=== PATIENT | male | born 1970 | race Caucasian/White ===

== ENCOUNTER 2024-12-17 11:08 | Emergency (ER) | payer OTHER, SELFPAY ==
--- OUTSIDE RECORDS SUMMARY | 2024-12-17 11:15 | XMS_ITS | Clinical Summary ---
Author Organization [facility] Address [address] [address] Phone Care Team Providers Care Duct Cleaner Name Role Phone Omega Jones MD Primary Care Provider +1 [phone] Allergies No known active allergies Medications lisinopril (PRINIVIL, ZESTRIL) 10 MG TabletIndications :Hypertension, essential TAKE 1 TABLET BY MOUTH DAILY 90 Tablet 3 5 Active sildenafil citrate (VIAGRA) 100 MG TabletIndications :Vasculogenic erectile dysfunction, unspecified vasculogenic erectile dysfunction type Take 1 Tablet by mouth daily as needed for Erectile Dysfunction. 10 Tablet 5 Active Active Problems Problem Noted Date Diagnosed Date Irritant contact dermatitis 05/31/2020 Mixed hyperlipidemia 08/31/2019 Hypertension, essential Encounters Date Type Department Care Team Description 12/16/2024 10:[address] [facility] Primary [facility] [place] [address] Lab [facility] Essential hypertension, malignant (Primary Dx); Hyperlipidemia, unspecified hyperlipidemia type; Routine general medical examination at health care facility Discharge Disposition: Discharged to home or Selfcare 12/16/2024 Travel 10/31/2024 3:15 PM INTERMODAL DISPATCHER Office Visit [facility] [place] [address] Omega Jones MD Encounter for health maintenance examination (Adult) (Primary Dx); Hypertension, essential; Mixed hyperlipidemia; Vasculogenic erectile dysfunction, unspecified vasculogenic erectile dysfunction type Discharge Disposition: Discharged to home or Selfcare 10/29/2024 Travel 10/28/2024 Refill [facility] [place] [address] [place] [address] Omega Jones MD Medication Refill from Last 3 Months Immunizations Immunization Administration Dates Next Due Influenza Vaccine greater than 3 yrs 05/31/2022, 08/31/2013 Influenza Vaccine, Quadrivalent, PF 10/02,07/04/2021,05/31/2020,2018 Influenza, Seasonal, Injecta ble, Undefined 05/31/2022 Influenza,Split Virus,Trivalent,Injectable,PF 08/29/2024 TD VACCINE 10/29/2023 TDAP Vaccine 02/15/2013 Family History Medical History Relation Name Comments Hypertension Brother 1 Geoff No Known Problems Brother 2 No Known Problems Daughter Cancer Father Geoff Lung Hypertension Father Geoff Cancer Maternal Grandfather Ismael hunter lar Hypertension Mother Leann Liu Diabetes Paternal Uncle Xiang Liu No Known Problems Sister No Known Problems Son 1 No Known Problems Son 2 No Known Problems Son 3 No Known Problems Son 4 Relation Name Status Comments Brother 1 Geoff Alive Brother 2 Alive Daughter Alive Father Geoff Maternal Grandfather Ismael Mother Leann Liu Alive Paternal Uncle Xiang Liu Sister Alive Son 1 Alive Son 2 Alive Son 3 Alive Son 4 Alive Social History Tobacco Use Types Packs/Day Years Used Date Smoking Tobacco: Never Smokeless Tobacco: Never Tobacco Cessation:Counseling Given: Not Answered Alcohol Use Standard Drinks/Week Comments Yes 4 (1 standard drink = 0.6 oz pur e alcohol) 4 beers a week [facility] Utilities Answer Date Recorded In the past 12 months has e [employer], gas, oil, or water [employer] threatened to shut off services in your home? No 10/29/2024 Social Connection and Isolat ion Panel [NHANES] Answer Date Recorded In a typical week, how many times do you talk on the phone with family, friends, or neighbors? More than three times a week 10/29/2024 How often do you get togethe r with friends or relatives? Twice a week 10/29/2024 How often do you attend chur ch or protestant services? Never 10/29/2024 Do you belong to any clubs o r organizations such as religion groups, unions, fraternal or athletic groups, or school groups? Yes 10/29/2024 How often do you attend meet ings of the clubs or organizations you belong to? More than 4 times per year 10/29/2024 Are you , , di vorced, , never , or living with a partner? 10/29/2024 AUDIT-C Answer Date Recorded Q1: How often do you have a drink containing alc ohol? 2-4 times a month 10/29/2024 Q2: How many drinks containi ng alcohol do you have on a typical day when you are drinking? 3 or 4 10/29/2024 Q3: How often do you have si x or more drinks on one occasion? Less than monthly 10/29/2024 Overall Financial Resource Strain (CARDIA) Answe r Date Recorded How hard is it for you to pa y for the very basics like food, housing, medical care, and heating? Not hard at all 10/29/2024 PHQ-2 Answer Date Recorded Total Score - Questions 1-9 0 10/2024 [facility] - Occupational Stress Questionnaire Answer Date Recorded Do you feel stress - tense, restless, nervous, or anxious, or unable to sleep at night because your mind is troubled all the time - these days? Not at all 10/29/2024 Exercise Vital Sign Answer Date Recorde d On average, how many days pe r week do you engage in moderate to strenuous exercise (like a brisk walk)? 5 days 10/29/2024 On average, how many minutes do you engage in exercise at this level? 60 min 10/29/2024 Hunger Vital Sign Answer Date Recorded Within the past 12 months, y ou worried that your food would run out before you got the money to buy more. Never true 10/30/19 25 Within the past 12 months, t he food you bought just didn't last and you didn't have money to get more. Never true 10/29/2024 PRAPARE - Transportation Answer Date Re corded In the past 12 months, has l ack of transportation kept you from medical appointments or from getting medications? No 08/2024 In the past 12 months, has l ack of transportation kept you from meetings, work, or from getting things needed for daily living? No 10/29/2024 Housing Stability Vital Sign Answer Akbar e Recorded In the last 12 months, was t here a time when you were not able to pay the mortgage or rent on time? No 10/28/2023 In the last 12 months, how many places have you lived? 1 10/28/2023 In the last 12 months, was t here a time when you did not have a steady place to sleep or slept in a halfway (including now)? No 10/28/2023 Housing Stability Vital Sign Answer Akbar e Recorded In the last 12 months, was t here a time when you were not able to pay the mortgage or rent on time? No 10/29/2024 Number of Times Moved in the Last Year Not on fi le 10/29/2024 At any time in the past 12 m [facility], were you homeless or living in a halfway (including now)? No 10/29/2024 Education Answer Date Recorded What is the highest level of school you have completed or the highest degree you have received? Some college, no degree 07/09/2020 Sexually Active Control Partners Comments Yes None Female Vasectomy Sex and Gender Information Value Date Recorded Sex Assigned at Male 09/30/2023 7:51 AM INTERMODAL DISPATCHER Legal Sex Male 7:09 PM CDT Gender Identity Male 09/30/2023 7:51 AM INTERMODAL DISPATCHER Sexual Orientation Straight 09/30/2023 7: 51 AM INTERMODAL DISPATCHER Last Filed Vital Signs Vital Sign Reading Time Taken Comments Blood Pressure 118/60 10/31/2024 3:20 PM INTERMODAL DISPATCHER Pulse 71 10/31/2024 3:20 PM INTERMODAL DISPATCHER Temperature 36.4 C (97.5 F) 10/31/2024 3:20 PM INTERMODAL DISPATCHER Respiratory Rate 22 10/31/2024 3:20 PM INTERMODAL DISPATCHER Oxygen Saturation 99% 10/31/2024 3:20 PM INTERMODAL DISPATCHER Inhaled Oxygen Concentration - - Weight 89.4 kg (197 lb 1.6 oz) 10/31/2024 3:20 P M INTERMODAL DISPATCHER Height 175.3 cm (5' 9 ) 10/31/2024 3:20 PM INTERMODAL DISPATCHER Body Mass Index 29.11 10/31/2024 3:20 PM INTERMODAL DISPATCHER Plan of Treatment Upcoming Encounters Date Type Department Care Team (Late st Contact Info) Description 2025 3:15 PM INTERMODAL DISPATCHER Office Visit [facility] - [facility] - [place] [address] [place] [phone] Omega Jones MD [address] [place] [address] Health Maintenance Due Date Last Done Comments Hepatitis B Immunization (1 of 3 - 19+ 3-dose series) 1988 Cologuard 11/03/2019 Immunochemical Fecal Occult Blood 11/03/2019 Pneumococcal Immunization (50+ years) (1 of 1 - PCV) 11/03/2019 Zoster Immunization (1 of 2) 11/03/2019 SARS-COV-2 Immunization (2 - season) 2024 12/07/2020 Colonoscopy 10/05/2025 10/05/2020 Colorectal Cancer Screening 10/05/2025 Td Immunization Every 10 Years (Adults With 1 Tdap) 10/28/2033 10/29/2023, 02/15/2013 Respiratory Syncytial Virus (RSV) Immunization (Adult) (1 - 1-dose 75+ series) 2044 10/05/2020 DTaP/Tdap/Td Immunization Discontinued 10/29/2023, Hepatitis C Virus (HCV) Screening Completed 11/07/2023 PSA Discussion Completed 06/27/2024 Influenza Immunization Completed , 10/29/2023, 05/31/2022, Additional history exists Meningococcal Immunization (ACWY) Aged Out No longer eligible based on patient's age to complete this topic Rotavirus Immunization Aged Out No lo nger eligible based on patient's age to complete this topic Procedures Procedure Name Priority Date/Time Associated Diagnosis Comments PSA FREE & TOTAL 06/27/2024 12:0 0 AM CDT HEPATITIS C ANTIBODY Routine 11/07/2023 9:46 AM INTERMODAL DISPATCHER Encounter for hepatitis C screening test for low risk patient from Last 3 Months or Most Recently Relevant to Health Maintenance Results * PSA FREE & TOTAL (06/27/2024 12:00 AM CDT) Prostatic Specific Antigen, Free 1.24 SCAN 06/27/2024 us Provider Scan CHEMISTRY ORDERABLES Final Resul t SCAN * HEPATITIS C ANTIBODY (11/07/2023 9:46 AM INTERMODAL DISPATCHER) hepatitis C antibody 0.09 <1 S/[facility] [id number] A 11/07/2023 10:52 PM INTERMODAL DISPATCHER [facility] Comment: Signal/Cutoff ratio < 0.79 is Nondetected Signal/Cutoff ratio 0.80-0.99 is Grayzone Signal/Cutoff ratio > 0.99 is Detected Supplemental assays are recommended if signal/cutoff ratio is >/=1.00. Signal/cutoff ratio result >/= 5.00 is 97% predictive of positivity for recombinant immunoblot assay (RIBA) and will be reported to the [place] Department of Public [facility] as required. Blood Venipuncture / Unknown 11/07/2023 9:46 AM INTERMODAL DISPATCHER 11/07/2023 10:16 AM INTERMODAL DISPATCHER Omega Jones MD CHEMISTRY ORDERABLES Nimco l Result Performing Organization Address City/[facility]/ZIP Co de Phone Number [facility] [place] [address] [place] [address], [place] from Last 3 Months or Most Recently Relevant to Health Maintenance Insurance [employer] [facility] Care Teams Duct Cleaner Relationship Specialty Start Date End Date Omega Jones MD [address] [place] [address] PCP - General Internal Medicine 05/12/15
--- OUTSIDE RECORDS SUMMARY | 2024-12-17 11:15 | XMS_ITS | Encounter Summary ---
Author Organization [facility] Address [address] [place] [address] Phone Care Team Providers Care Forest Fire Prevention Specialist Name Role Phone Omega Jones MD Primary Care Provider [phone] [phone] Reason for Visit * Reason Comments Medication Refill Encounter Details Date Type Department Care Team (Late st Contact Info) Description 07/01/2023 [facility]ill [facility] [address] [place] [address] Omega Jones MD [address] [place] [address] Medication Refill Social History Tobacco Use Types Packs/Day Years Used Date Smoking Tobacco: Never Smokeless Tobacco: Never Alcohol Use Standard Drinks/Week Comments Yes 4 (1 standard drink = 0.6 oz pur e alcohol) 4 beers a week PHQ-2 Answer Date Recorded Total Score - Questions 1-9 0 11/2020 Education Answer Date Recorded What is the highest level of school you have completed or the highest degree you have received? Some college, no degree 07/09/2020 Sexually Active Control Partners Comments Yes Female Sex and Gender Information Value Date Recorded Sex Assigned at Male 09/30/2023 7:51 AM CATTLE SPRAYER Legal Sex Male 7:09 PM CDT Gender Identity Male 09/30/2023 7:51 AM CATTLE SPRAYER Sexual Orientation Straight 09/30/2023 7: 51 AM CATTLE SPRAYER documented as of this encounter Miscellaneous Notes * Telephone Encounter - Freya Cody RN - 07/01/2023 8:09 AM CDT lisinopril (PRINIVIL, ZESTRIL) 10 MG Tablet 90 Tablet 2 12/29/2022 Refill too soon documented in this encounter Plan of Treatment Upcoming Encounters Date Type Department Care Team (Late st Contact Info) Description 2025 3:15 PM CATTLE SPRAYER Office Visit [facility] - Primary Care - [place] [address] [place] [address] Omega Jones MD [address] [place] [address] documented as of this encounter Visit Diagnoses Not on filedocumented in this encounter Additional Health Concerns Assessment Noted Time PHQ-9 Depression Total Score: 0 07/04/20 21 3:00 PM CDT documented as of this encounter Care Teams Forest Fire Prevention Specialist Relationship Specialty Start Date End Date Omega Jones MD [address] [place] [address] PCP - General Internal Medicine 05/12/15 documented as of this encounter
--- OUTSIDE RECORDS SUMMARY | 2024-12-17 11:15 | XMS_ITS | Encounter Summary ---
Author Organization [facility] Care Team Providers Care Location Manager Name Role Phone Omega Jones MD Primary Care Provider [phone] [phone] Encounter Details Date Type Department Care Team (Latest Contact Info) Description 12/16/2024 Travel Social History Tobacco Use Types Packs/Day Years Used Date Smoking Tobacco: Never Smokeless Tobacco: Never Alcohol Use Standard Drinks/Week Comments Yes 4 (1 standard drink = 0.6 oz pur e alcohol) 4 beers a week [facility] Utilities Answer Date Recorded In the past 12 months has [employer], gas, oil, or water company threatened to shut off services in your [...] often do you attend chur ch or baptism services? Never 10/29/2024 Do you belong to any clubs o r organizations such as cheondoism groups, unions, fraternal or athletic groups, or [...] Total Score - Questions 1-9 0 10/2024 [facility] of Occupat ional Health - Occupational Stress [...] place to sleep or slept in a snf (including now)? No 10/28/2023 Housing Stability Vital Sign Answer Akbar e Recorded In the last 12 months, was t here a time when you were not able to pay the mortgage or rent on time? No 10/29/2024 Number of Times Moved in the Last Year Not on fi le 10/29/2024 At any time in the past 12 m [facility], were you homeless or living in a snf (including now)? No 10/29/2024 Education Answer Date Recorded What is the highest level of school you have completed or the highest degree you have received? Some college, no degree 07/09/2020 Sexually Active Control Partners Comments Yes None Female Vasectomy Sex and Gender Information Value Date Recorded Sex Assigned at Male 09/30/2023 7:51 AM CASING WORKER Legal Sex Male 7:09 PM CDT Gender Identity Male 09/30/2023 7:51 AM CASING WORKER Sexual Orientation Straight 09/30/2023 7: 51 AM CASING WORKER documented as of this encounter Plan of Treatment Upcoming Encounters Date Type Department Care Team (Late st Contact Info) Description 2025 3:15 PM CASING WORKER Office [facility] - [facility] - [place] [address] [place] [address] mOega Jones MD [address] [place] [address] documented as of this encounter Visit Diagnoses Not on filedocumented in this encounter Additional Health Concerns Assessment Noted Time PHQ-9 Depression Total Score: 0 11/01/19 25 3:27 PM CASING WORKER documented as of this encounter Care Teams Location Manager Relationship Specialty Start Date End Date Omega Jones MD [address] [place] [address] PCP - General Internal Medicine 05/12/15 documented as of this encounter
--- OUTSIDE RECORDS SUMMARY | 2024-12-17 11:15 | XMS_ITS | Encounter Summary ---
Author Organization [facility] Address [address] [place] [address] Phone Care Team Providers Care Auto Radiator Mechanic Name Role Phone Omega Jones MD Primary Care Provider [phone] [phone] Encounter Details Date Type Department Care Team (Late st Contact Info) Description 12/16/2024 10:40 AM CDT Lab [facility] - Primary Care [address] [address] Lab, [facility] Essential hypertension, malignant (Primary Dx); Hyperlipidemia, unspecified hyperlipidemia type; Routine general medical examination at health care facility Discharge Disposition: Discharged to home or Selfcare Social History Tobacco Use Types Packs/Day Years Used Date Smoking Tobacco: Never Smokeless Tobacco: Never Alcohol Use Standard Drinks/Week Comments Yes 4 (1 standard drink = 0.6 oz pur e alcohol) 4 beers a week [facility] Utilities Answer Date Recorded In the past 12 months has [employer], gas, oil, or water [employer] threatened to shut off services in your [...] week 10/29/2024 How often do you attend [facility] or evangelical services? Never 10/29/2024 Do you belong to any clubs o r organizations such as congregation groups, unions, fraternal or athletic groups, or [...] Total Score - Questions 1-9 0 10/2024 [facility] of Occupat ional Health - Occupational [...] place to sleep or slept in a fdc (including now)? No 10/28/2023 Housing Stability Vital Sign Answer Akbar e Recorded In the last 12 months, was t here a time when you were not able to pay the mortgage or rent on time? No 10/29/2024 Number of Times Moved in the Last Year Not on fi le 10/29/2024 At any time in the past 12 m [facility], were you homeless or living in a fdc (including now)? No 10/29/2024 Education Answer Date Recorded What is the highest level of school you have completed or the highest degree you have received? Some college, no degree 07/09/2020 Sexually Active Control Partners Comments Yes None Female Vasectomy Sex and Gender Information Value Date Recorded Sex Assigned at Male 09/30/2023 7:51 AM MOP MAKER Legal Sex Male 7:09 PM CDT Gender Identity Male 09/30/2023 7:51 AM MOP MAKER Sexual Orientation Straight 09/30/2023 7: 51 AM MOP MAKER documented as of this encounter Progress Notes * Rachele Mcgovern - 12/16/2024 10:40 AM CDT Ismael presents for lab draw per order of Dr. Omega Jones dated 12/16/24. Specimen collectedfrom right antecubital without incident. quest documented in this encounter Plan of Treatment Upcoming Encounters Date Type Department Care Team (Late st Contact Info) Description 2025 3:15 PM MOP MAKER Office Visit [facility] - Primary Care - [place] [address] [place] [address] Omega Jones MD [address] [place] [address] documented as of this encounter Visit Diagnoses Diagnosis Essential hypertension, malignant- Primary Hyperlipidemia, unspecified hyperlipidemia type Routine general medical examination at health care facility Routine general medical examination at a health care facility documented in this encounter Additional Health Concerns Assessment Noted Time PHQ-9 Depression Total Score: 0 11/01/19 25 3:27 PM MOP MAKER documented as of this encounter Care Teams Auto Radiator Mechanic Relationship Specialty Start Date End Date Omega Jones MD [address] [place] [address] PCP - General Internal Medicine 05/12/15 documented as of this encounter
--- OUTSIDE RECORDS SUMMARY | 2024-12-17 11:15 | XMS_ITS | Continuity of Care Document ---
Author Name [facility] Organization [facility] Care Team Providers Care Ic Designer Standard Cells Name Role Phone [facility] Unavailable Unavailable Encounters Combined list of: 1) Encounters from Department of Veterans Affairs facilities going backup to the last 18 months, not all VA inpatient encounters are included; 2) Encounters from the Department of Defense facilities going backup to 280 months. Location Location Details Encounter Type Encounter Number Reason For Visit Attending Provider ADM Date DC Date Status Disposition Source [facility] Outpatient Encounter [id number] 01/19 [facility] ADAM Puentes
--- OUTSIDE RECORDS SUMMARY | 2024-12-17 11:16 | XMS_ITS | Encounter Summary ---
Author Organization [facility] Address [address] [place] [address] Phone Care Team Providers Care Mobile Designer Name Role Phone Omega Jones MD Primary Care Provider [phone] Reason for Visit * Reason Comments Medication Refill Encounter Details Date Type Department Care Team (Late st Contact Info) Description 12/07/2021 Refill [facility] - Primary Care - [place] [address] [place] [phone] Omega Jones MD [address] [place], [place] [id number] Medication Refill Social History Tobacco Use Types [...] Sex Assigned at Male 09/30/2023 7:51 AM SOLICITOR PATENT Legal Sex Male 7:09 PM CDT Gender Identity Male 09/30/2023 7:51 AM SOLICITOR PATENT Sexual Orientation Straight 09/30/2023 7: 51 AM SOLICITOR PATENT documented as of this encounter Miscellaneous Notes * Telephone Encounter - Jodee Cyr RN - 12/09/2021 8:06 AM CDT Refill request too soon. documented in this encounter Plan of Treatment Upcoming Encounters Date Type Department Care Team (Late st Contact Info) Description 2025 3:15 PM SOLICITOR PATENT Office Visit [facility] - Primary Care - [place] [address] [place] [address] Omega Jones MD [address] [place] [address] documented as of this encounter Visit Diagnoses Not on filedocumented in this encounter Additional Health Concerns Assessment Noted Time PHQ-9 Depression Total Score: 0 07/04/20 21 3:00 PM CDT documented as of this encounter Care Teams Mobile Designer Relationship Specialty Start Date End Date Omega Jones MD [address] [place] [address] PCP - General Internal Medicine 05/12/15 documented as of this encounter
--- OUTSIDE RECORDS SUMMARY | 2024-12-17 11:16 | XMS_ITS | Encounter Summary ---
Author Organization [facility] Address [address] [address] Phone Care Team Providers Care Kier Hand Name Role Phone Omega Jones MD Primary Care Provider [phone] Reason for Visit * Reason Comments Medication Refill Encounter Details Date Type Department Care Team (Late st Contact Info) Description 08/24/2020 Refill [facility] - Primary Care - [place] [address] [place] [id number] Omega Jones MD [address] [place], [place] [id number] Medication Refill Social History Tobacco Use Types Packs/Day Years Used Date Smoking Tobacco: Never Smokeless Tobacco: Never Alcohol Use Standard Drinks/Week Comments Yes 4 (1 standard drink = 0.6 oz pur e alcohol) PHQ-2 Answer Date Recorded Total Score - Questions 1-9 0 10/0 08/2019 Education Answer Date Recorded What is the highest level of school you have completed or the highest degree you have received? Some college, no degree 07/09/2020 Sexually Active Control Partners Comments Yes Sex and Gender Information Value Date Recorded Sex Assigned at Male 09/30/2023 7:51 AM RENEWABLE ENERGY TECHNICIAN Legal Sex Male 7:09 PM CDT Gender Identity Male 09/30/2023 7:51 AM RENEWABLE ENERGY TECHNICIAN Sexual Orientation Straight 09/30/2023 7: 51 AM RENEWABLE ENERGY TECHNICIAN COVID-19 Exposure Response Date Recorded In the last month, have you been in contact with someone who was confirmed or suspected to have Coronavirus / COVID-19? No / Unsure 07/31/2020 8:48 AM RENEWABLE ENERGY TECHNICIAN documented as of this encounter Miscellaneous Notes * Telephone Encounter - Omega Jones MD - 08/27/2020 12:07 PM RENEWABLE ENERGY TECHNICIAN Refill request approved. WABLE ENERGY TECHNICIAN * Telephone Encounter - Airam Kim RN - 08/27/2020 12:06 PM RENEWABLE ENERGY TECHNICIAN Patient returning call. Informed him that he should have 2 refills of Fluconazole available from [facility] and that a message was sent to Dr. Jones about refills on Lisinopril. It appears that previous RN pended the Lisinopril for your review and signature if you agree. Thank you WABLE ENERGY TECHNICIAN * Telephone Encounter - Airam Harris RN - 08/27/2020 12:00 PM RENEWABLE ENERGY TECHNICIAN Spoke with Teddy at [facility] pharmacy. They were only authorized by his insurance to do 30 day fills on the fluconazole. He has 2 refills waiting at the pharmacy. Attempted to phone patient to inform of this- no answer, voicemail left to call the office. Lisinopril was refilled on 07/11/20 for #90 but was listed as a no print. Pharmacy still needs refills on this. WABLE ENERGY TECHNICIAN * Telephone Encounter - Omega Jones MD - 08/27/2020 10:55 AM RENEWABLE ENERGY TECHNICIAN The patient was ordered a 90 day supply of fluconazole on May 31, 2020. Apparently his pharmacy only gave him 30 days of the prescription. We need to find out why they did this and why they have not refilled it. WABLE ENERGY TECHNICIAN * Telephone Encounter - Nata Lemus RN - 08/27/2020 10:32 AM CST Patient states that is what he just did. He followed up in July and was seen in office. He states that Dr Jones was going to check into why pharmacy didn't fill the 90 days of diflucan for the foot fungus. He states that it has not cleared up yet and pharmacy hasn't refilled the order. Please advise. WABLE ENERGY TECHNICIAN * Telephone Encounter - Anneliese Huynh CMA - 08/27/2020 10:20 AM RENEWABLE ENERGY TECHNICIAN Attempted to contact Ismael Liu to schedule yearly fasting office visit that is due 06/01/21 as PCP prefers patient's to have follow-up scheduled so that they are not overlooked. No answer, left message to call back. WABLE ENERGY TECHNICIAN documented in this encounter Plan of Treatment Upcoming Encounters Date Type Department Care Team (Late st Contact Info) Description 2025 3:15 PM RENEWABLE ENERGY TECHNICIAN Office Visit [facility] - Primary Care - [place] [address] [place] [phone] Omega Jones MD [address] [place] [address] documented as of this encounter Visit Diagnoses Not on filedocumented in this encounter Additional Health Concerns Infection Onset Date Last Indicated Resolved Time COVID - 19 07/29/2021 07/29/2021 07/31/2021 11:3 5 AM RENEWABLE ENERGY TECHNICIAN COVID - 19 Confirmed 07/29/2021 07/29/2021 021 12:16 AM RENEWABLE ENERGY TECHNICIAN Assessment Noted Time PHQ-9 Depression Total Score: 0 05/31/20 20 10:00 AM CDT documented as of this encounter Care Teams Kier Hand Relationship Specialty Start Date End Date Omega Jones MD [address] [place] [address] PCP - General Internal Medicine 05/12/15 documented as of this encounter
[2024-12-17 11:17] VITALS: BP 117/74; PULSE 78; RESP 20; TEMP 36.5; O2SAT 99
--- NOTE | 2024-12-17 11:38 | ED.BACK ---
HPI - Back Pain/Injury General Chief Complaint: Back Pain/Injury Stated Complaint: Back Pain Time Seen by Provider: 12/17/24 11:38 Source: patient and RN notes reviewed Mode of arrival: ambulatory Limitations: no limitations History of Present Illness HPI Narrative: 54-year-old male presents with concern for right-sided low back pain. Reports yesterday he was sitting on a low stool working on a motorcycle when he stood up he had pain. He denies any injury or trauma. Reports a few days before that he had had some twinges in his right hip but otherwise denies any back problems. 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 He denies loss of bowel or bladder function, perianal anesthesia, abdominal pain, fever, weakness in the extremity MD elicited complaint: back pain Related Data Home Medications ?Medication ?Instructions ?Recorded ?Confirmed ?Last Taken ?Type lisinopril 10 mg tablet mg 12/17/24 Unknown History sildenafil 100 mg tablet mg 12/17/24 Unknown History Allergies Allergy/AdvReac Type Severity Reaction Status Date / Time No Known Allergies Allergy Verified 12/17/24 11:21 Review of Systems Review of Systems: CONSTITUTIONAL: Denies malaise, chills, sweats, or fever. CARDIOVASCULAR: Denies chest pain, palpitations, or edema. RESPIRATORY: Denies cough or dyspnea. GASTROINTESTINAL: Denies abdominal pain, nausea, vomiting, diarrhea, loss of bowel function GENITOURINARY: Denies dysuria, hematuria, frequency, loss of bladder function. SKIN: Denies rash or itching. MUSCULOSKELETAL: Reports rates itis low back pain NEUROLOGIC: Denies numbness, weakness, or headache. All systems reviewed & are unremarkable except as noted in HPI and below PMFSH Comments At time of signature, agree with nursing past medical, surgical, social and family history. There is no relevant family history pertinent to the presenting complaint Exam Narrative: GENERAL: Well-appearing, well-nourished, and in no acute distress. HEAD: Normocephalic, atraumatic. EYES: PERRLA and EOMI. NECK: Supple. No lymphadenopathy. CHEST: Clear to auscultation. No respiratory distress. HEART: Regular rate and rhythm. Distal pulses palpable and equal, cap refill <3 seconds ABDOMEN: Soft, nontender, nondistended, normal active bowel sounds, no palpable or pulsatile masses. No CVA tenderness MUSCULOSKELETAL: Normal range of motion and strength in all extremities; 5/5 strength with hip flexion and extension, dorsiflexion and extension, knee flexion and extension, plantar flexion and extension. Normal sensation in dermatomal distributions with sensitivity to light touch and pain. No midline back tenderness to palpation. No paraspinal tenderness. Transfers from sitting to standing. SKIN: Warm, dry, no rash. No ecchymosis, erythema, open wounds to back. NEURO: No focal deficits. Alert and oriented x3. Reflexes intact. Normal gait. PSYCH: Normal mood and affect Course Course Emergency Course: Patient is aware of diagnosis, understands and agrees to treatment plan. Anticipatory guidance given. Patient agrees to follow-up as directed and is aware of reasons to seek care at the emergency department. Portions of this record may have been created with voice recognition software Level of Care: [facility] Visit Vital Signs Vital signs: Vital Signs Temperature 97.7 F 12/17/24 11:17 Pulse Rate 78 12/17/24 11:17 Respiratory Rate 20 12/17/24 11:17 Blood Pressure 117/74 12/17/24 11:17 Pulse Oximetry 99 12/17/24 11:17 Oxygen Delivery Room Air 12/17/24 11:17 Temperature 97.7 F 12/17/24 11:17 Pulse Rate 78 12/17/24 11:17 Respiratory Rate 20 12/17/24 11:17 Blood Pressure 117/74 12/17/24 11:17 Pulse Oximetry 99 12/17/24 11:17 Oxygen Delivery Room Air 12/17/24 11:17 Reviewed. MDM - Back Pain/Injury MDM Narrative Medical decision making narrative: I evaluated this in the [facility]. History is obtained from patient who is an independent historian and physical exam was performed.? Available medical records were reviewed. ? Exam findings and relevant testing show no acute concerns or changes; patient is non-toxic appearing and is in no distress. No risk factors or findings concerning for epidural abscess, diskitis, vertebral osteomyelitis, cord compression, cauda equina, vertebral fracture or bone malignancy, AAA, or pyelonephritis. Patient instructed to consider further imaging and workup through their primary care physician as an outpatient if symptoms persist. ? Differential diagnosis and treatment plan were discussed with the patient. Patient agrees with discussion and after shared medical decision making agrees with plan of care. All questions were answered to the patient's satisfaction. Patient is appropriate for outpatient treatment and follow-up. Critical Care Time Critical Care Time Critical Care Time: No Discharge Plan Discharge Clinical Impression: Nonspecific low back pain Patient Disposition: Home Condition: Stable Instructions: Acute Low Back Pain (ED) Additional Instructions: Please follow up with your Primary Care Doctor within 48-72 hours - call for an appointment. Walking and other gentle exercising several times a week has been shown to improve back pain; bed rest is not recommended. Take prednisone as directed, take muscle relaxers every 8 hours as needed for muscle spasm- do not drive or make any important decisions while on this medication for it can make you drowsy. You may apply heat or cold to the area as needed. If you experience any worsening pain, swelling, numbness, weakness please go to ER. Contact your doctor or go to the emergency department if you develop problems with bladder or bowel function, weakness or loss of feeling in one or both of your legs, or any other serious concerns. Patient Language: Gibraltarian Prescriptions: New cyclobenzaprine 10 mg tablet 10 mg PO TID PRN (Reason: muscle spasm) Qty: 20 0RF prednisone 50 mg tablet 50 mg PO DAILY 5 Days Qty: 5 0RF No Action sildenafil 100 mg tablet lisinopril 10 mg tablet Follow-up/Referrals: Karen,Omega Monzon MD [Primary Care Provider] - Time of Disposition: 11:49
== END 2024-12-17 11:53 | disposition home or self-care (01) ==
PROVIDERS: Emergency Provider Nurse Practitioner; PCP Internal Medicine
DX: M54.50 Low back pain, unspecified (principal); I10 Essential (primary) hypertension
CPT/HCPCS: 99203; G0463